=== PATIENT | female | born 1940 | race Caucasian/White ===

== ENCOUNTER 2021-10-29 10:23 | Observation (INO) | payer OTHER ==
[~2021-10-29] VITALS: Ht 162.6 cm; Wt 69.6 kg
[2021-10-29 10:23] VITALS: BP 233/73
--- NOTE | 2021-10-29 10:23 | NUR ---
PT BIBA TO BED 8
--- NOTE | 2021-10-29 10:25 | NUR ---
81 Y/O FEMALE BIBA FROM HOME C/O R HIP PAIN AND LOWER BACK PAIN S/P MECHANICAL FALL XTODAY. PT REPORTS HITTING HER HEAD ON DOOR, DENIES LOC. PT WAS GIVEN 100MCG FENTANYL IN WITH MINOR RELIEF. SPO2 DROPPED TO 85% S/P FENTANYL, PLACED ON 2L N/C BY MEDICS. PT AMBULATES WITH WALKER. DENIES BLOOD THINNERS. PT DENIES CHEST PAIN, SOB. PT DENIES FEVER OR CHILLS. 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
--- NOTE | 2021-10-29 10:34 | NUR ---
AT PT BEDSIDE
[2021-10-29] MEDS ORDERED: LABETALOL 100 MG/20 ML VIAL IVP ONE (10:40)
[2021-10-29] MEDS ORDERED: MORPHINE SULFATE 4 MG/ML SYR IVP ONE ×2 (10:40→13:55)
--- NOTE | 2021-10-29 10:40 | NUR ---
MORPHINE ORDERED FOR PATIENT. PER DR. VACA DO NOT GIVE MORPHINE AT THIS TIME. PT WAS GIVEN FENTAYL EN ROUTE BY EMS.
[2021-10-29] MEDS ORDERED: LIDOCAINE 5% 1 EA PATCH TP SCH (10:50)
[2021-10-29] MEDS ORDERED: hydrALAZINE 20 MG/ML VIAL IVP ONE ×2 (10:50→12:50)
--- NOTE | 2021-10-29 10:52 | NUR ---
LAB AT PT BEDSIDE
--- NOTE | 2021-10-29 11:07 | NUR ---
UNABLE TO PERFORM EKG ON PT. RADIOLOGY AT BEDSIDE GETTING READY TO TAKE PT FOR X RAY.
[2021-10-29 11:08] LABS: BASOPHILS % (AUTO) 0.3 % (0.0-2.0); EOSINOPHILS # (AUTO) 0.1 K/uL (0-0.4); EOSINOPHILS % (AUTO) 0.8 % (0.0-4.0); LYMPHOCYTES # (AUTO) 2.2 K/uL (2.5-16.5); LYMPHOCYTES % (AUTO) 17.9 % (20.5-51.1); MEAN CORPUSCULAR HEMOGLOBIN 27 pg (27-31); MEAN CORPUSCULAR HGB CONC 32 g/dL (33-37); MEAN CORPUSCULAR VOLUME 82.3 fL (80-94); MONOCYTES # (AUTO) 0.7 K/uL (0.8-1.0); MONOCYTES % (AUTO) 5.4 % (1.7-9.3); NEUTROPHILS # (AUTO) 9.3 K/uL (1.8-7.7); NEUTROPHILS % (AUTO) 75.6 % (42.2-75.2); PLATELET COUNT (AUTO) 218 K/uL (140-450); RED BLOOD CELL COUNT(AUTO) 4.85 MIL/uL (4.20-5.40); RED CELL DISTRIBUTION WIDTH 13.8 % (11.6-13.7); WHITE BLOOD COUNT (AUTO) 12.3 K/uL (4.8-10.8)
--- NOTE | 2021-10-29 11:08 | NUR ---
PT TAKEN TO XR VIA TONI
[2021-10-29 11:25] LABS: PROTHROMBIN TIME 10.3 secs (10.8-13.4)
[2021-10-29 11:42] LABS: ALBUMIN 3.6 g/dL (3.4-5.0); CARBON DIOXIDE 31.1 mmol/L (21-32); CREATININE 0.8 mg/dL (0.6-1.3); GLUCOSE 138 mg/dL (74-106); TOTAL BILIRUBIN 0.6 mg/dL (0.0-1.0); UREA NITROGEN, BLOOD 13 mg/dL (7-18)
[2021-10-29 11:44] LABS: CHLORIDE 103 mmol/L (98-107); POTASSIUM 4.1 mmol/L (3.5-5.1); SODIUM SERUM 140 mmol/L (136-145)
--- NOTE | 2021-10-29 11:58 | NUR ---
PT RETURNED FROM RAD AND PLACED BACK ONTO MARKET DEVELOPMENT MANAGER.
[2021-10-29 12:10] LABS: ASPARTATE AMINOTRANSFERASE 24 U/L (15-37)
--- NOTE | 2021-10-29 12:30 | NUR ---
PATIENT APPEARS TO BE RESTING COMFORTABLY IN BED. RESPIRATIONS EVEN AND UNLABORED. BP 200/63 MD NOTIFIED.
--- NOTE | 2021-10-29 12:47 | NUR ---
ATTEMPTED TO CALL PATIENTS LADONNA AND DAUGHTER ALISA REGARDING MEDICATIONS FOR HYPERTENSION PATIENT TAKES. HAVE BEEN UNABLE TO REACH THEM. WILL CONTINUE TO TRY.
--- NOTE | 2021-10-29 12:51 | NUR ---
PT STATES HER PAIN IS CURRENTLY 9/10. PER DR. NOLA FLOWER TO GIVE PATIENT PAIN MEDICATION PRESCRIBED.
[2021-10-29] MEDS ORDERED: MORPHINE SULFATE 4 MG/ML SYR ONE (12:56)
--- NOTE | 2021-10-29 13:05 | NUR ---
PATIENTS BP 188/66. PER MD HOLD HYDRALAZINE AT THIS TIME.
[2021-10-29] MEDS ORDERED: methocarbamoL 500 MG TAB PO ONE (13:55)
[2021-10-29] MEDS ORDERED: hydroCHLOROthiazide 25 MG TAB PO ONE (14:20)
--- NOTE | 2021-10-29 14:26 | NUR ---
PT TAKEN TO CT VIA TONI
--- NOTE | 2021-10-29 14:52 | NUR ---
HUEY SAWANT WALKED TO LAB
[2021-10-29] MEDS: LOSARTAN 50 MG TAB PO SCH ×2 (15:25→15:33)
[2021-10-29] MEDS: METOPROLOL SUCCINATE 50 MG TABER PO SCH ×2 (15:28→15:34)
[2021-10-29] MEDS: hydroCHLOROthiazide 25 MG TAB PO SCH ×2 (15:29→15:31)
[2021-10-29] MEDS ORDERED: ACETAMINOPHEN 325 MG TAB PO PRN (16:35)
[2021-10-29] MEDS ORDERED: HYDROcodone/APAP 5/325 MG 1 TAB TAB PO PRN (16:35)
[2021-10-29] MEDS ORDERED: POTASSIUM CHLORIDE 10 MEQ TABER PO PRN (16:35)
[2021-10-29] MEDS ORDERED: MAGNESIUM OXIDE 400 MG TAB PO PRN (16:35)
[2021-10-29] MEDS ORDERED: KCL 20 MEQ/WATER INJ PREMIX 200 ML IV PRN (16:35)
[2021-10-29] MEDS ORDERED: MAG SULF 2000 MG/WATER PREMIX 50 ML IV PRN (16:35)
--- NOTE | 2021-10-29 17:20 | NUR ---
Note michelle in ED - 10/29/21 at 1723 by ALEXANDER Patient will be admitted to care of . Admited to MED SURG. Will go to room 107A. Belongings list completed. Report to EMANUEL EUCEDA.
--- NOTE | 2021-10-29 17:23 | NUR ---
Patient will be admitted to care of . Admited to MED SURG. Will go to room 107 A. Belongings list completed. Report to EMANUEL EUCEDA.
[2021-10-29] MEDS: MORPHINE SULFATE 4 MG/ML SYR IVP PRN (18:10)
[2021-10-29] MEDS: ONDANSETRON 4 MG/2 ML VIAL IVP PRN (18:11)
[2021-10-29] MEDS ORDERED: LOSA100T51 PO (19:07)
[2021-10-29] MEDS ORDERED: METO50TE2 PO (19:08)
[2021-10-29 19:11] VITALS: BP 189/60
[2021-10-29] MEDS ORDERED: HYDR12.51 PO (19:13)
[2021-10-29] MEDS ORDERED: ALBU-118 INH (19:14)
[2021-10-29] MEDS ORDERED: GABA250S1 PO (19:15)
[2021-10-29] MEDS: hydrALAZINE 20 MG/ML VIAL IVP PRN (19:21)
--- NOTE | 2021-10-29 19:40 | NUR ---
OPENING NOTES; Received report from outgoing nurse. Pt lying in bed resting. No signs of resp. distress, or discomfort. Pt denied any pain at this time. Facial expressions calm and relaxed. 2000; Pt vitals appear stable. BP at this time 143/66, P 65, T 97.8, O2SAT 95%. Will cont to monitor.
[2021-10-30 04:00] VITALS: BP 167/71
[2021-10-30] MEDS: MORPHINE SULFATE 4 MG/ML SYR IVP PRN (06:16)
[2021-10-30] MEDS: ONDANSETRON 4 MG/2 ML VIAL IVP PRN ×3 (06:25→18:17)
[2021-10-30 06:40] LABS: HEMOGLOBIN 12.8 g/dL (12.0-16.0); MEAN CORPUSCULAR HEMOGLOBIN 27 pg (27-31); MEAN CORPUSCULAR HGB CONC 33 g/dL (33-37); MEAN CORPUSCULAR VOLUME 81.6 fL (80-94); PLATELET COUNT (AUTO) 231 K/uL (140-450); RED BLOOD CELL COUNT(AUTO) 4.78 MIL/uL (4.20-5.40); RED CELL DISTRIBUTION WIDTH 14.2 % (11.6-13.7); WHITE BLOOD COUNT (AUTO) 17.9 K/uL (4.8-10.8)
[2021-10-30 07:14] LABS: BASOPHILS % (MANUAL) 0 % (0-2); EOSINOPHILS % (MANUAL) 0 % (0-4); LYMPHOCYTES % (MANUAL) 17 % (20-46); MONOCYTES % (MANUAL) 5 % (5-12)
[2021-10-30 07:18] LABS: ALBUMIN 3.5 g/dL (3.4-5.0); ANION GAP 11.6 (8-16); ASPARTATE AMINOTRANSFERASE 14 U/L (15-37); CARBON DIOXIDE 28.1 mmol/L (21-32); CHLORIDE 100 mmol/L (98-107); CREATININE 0.8 mg/dL (0.6-1.3); GLUCOSE 142 mg/dL (74-106); POTASSIUM 3.7 mmol/L (3.5-5.1); SODIUM SERUM 136 mmol/L (136-145); TOTAL BILIRUBIN 0.8 mg/dL (0.0-1.0); UREA NITROGEN, BLOOD 14 mg/dL (7-18)
--- NOTE | 2021-10-30 07:45 | NUR ---
END OF SHIFT REPORT GIVEN TO INCOMING NURSE. PT C/O PAIN 03/20, NOTED BP @ 0400 167/71. GAVE MORPHINE PER ORDER. ON RECHECKING BP, IT CAME DOWN TO 151/63. PT MADE COMFORTABLE, CHANGED, KEPT CLEAN AND DRY. ALL SAFETY AND COMFORT MEASURES PUT IN PLACE. PT WITH NO S/SX OF DISTRESS, STABLE AT THIS TIME, ENDORSED TO INCOMING NURSE FOR CONTINUITY OF CARE.
[2021-10-30 08:00] VITALS: BP 107/67
--- NOTE | 2021-10-30 08:00 | NUR ---
RECEIVED ENDORSEMENT FROM PM SHIFT NURSE WITH PATIENT REST IN BED, PIV 22G R. HAND SALINE LOCKED
--- NOTE | 2021-10-30 14:29 | NUR ---
DC PLANNING: RECEIVED A CALL FROM DR ALVARENGA STATED DISCUSSED THE DC PLAN TO SNF WITH PT'S AND HE AGREED FOR HIS TO GO TO SNF. FAXED THE ORDER TO [facility] [phone] .AWAITING FOR PT LEONARDOAL FAXED TO [facility], [facility], [facility] AND [facility] [place]. CM TO FOLLOW Addendum: 10/31/21 at 1126 by Danielle Gaxiola CM DC PLANNING: LLUVIA SPOKE WITH THE PATIENT AND HER AT BEDSIDE, SHE STATES SHE IS WILLING TO GO TO [facility]. LLUVIA ALSO SPOKE WITH FATUMA AT [facility], AUTH GIVEN FOR [facility] OF [id number], HE WILL GIVE AUTH NUMBER TO PETRA AT [facility]. CM PENDING ROOM ASSIGNMENT TO SET UP TRANSPORT, AND WILL FOLLOW FOR NEEDS. Addendum: 10/31/21 at 1213 by Danielle Gaxiola CM DC PLANNING: PATIENT ASSIGNED TO ROOM 19, DR ESTRADA TO FOLLOW. ALLAN ([phone]) WILL TRUCKING MANAGER THE PATIENT BETWEEN [phone] NUMBER TO CALL REPORT IS [phone]. ABOVE ENDORSED TO THE PATIENTS NURSE PEPE. CM WILL FOLLOW.
[2021-10-30 16:00] VITALS: BP 194/86
--- NOTE | 2021-10-30 16:00 | NUR ---
PATIENT'S BP 194/86, ONE DOSE HYDRALAZINE GAVE, ONE LATER BP 185/46, B UT PATIENT REPORT NAUSEATED, ZOFRAN AND ICE CHIP GIVEN. WILL CONTINUE TO MONITOR
[2021-10-30] MEDS: hydrALAZINE 20 MG/ML VIAL IVP PRN (17:14)
--- NOTE | 2021-10-30 19:35 | NUR ---
ENDORSE PATIENT TO PM SHIFT NURSE WHILE PATIENT REST IN BED NO VOMITING, NAUSEA MEDICATION GIVEN. BP NEED CLOSE MONITOR. PIV R. HAND SALINE LOCK.
--- NOTE | 2021-10-30 20:23 | NUR ---
BP RE CHECK 176/64 - HYDRALAZINE GIVEN TIV BY AM SHIFT RN . WILL CONT. TO MONITOR . , CALL LIGHT WITHIN REACH .
[2021-10-30] MEDS ORDERED: ACET-9525 PO (21:29)
--- NOTE | 2021-10-30 22:22 | NUR ---
BP RE CHECK 130/76 , MT 72 - NO COMPLAIN MADE , CALL LIGHT WITHIN REACH .
[2021-10-31] VITALS: BP 136/75
--- NOTE | 2021-10-31 01:01 | NUR ---
SLEEPING , CHEST RISE AND FALL EQUALLY - CALL LIGHT WITHIN REACH .
--- NOTE | 2021-10-31 04:00 | NUR ---
ROUNDS , AWAKEABLE , NO COMPLAIN MADE .
--- NOTE | 2021-10-31 06:07 | NUR ---
DIAPER FULLY WET - WILL CLEAN UP - NO COMPLAIN MADE .
[2021-10-31 06:31] LABS: BASOPHILS % (AUTO) 0.3 % (0.0-2.0); EOSINOPHILS # (AUTO) 0.1 K/uL (0-0.4); EOSINOPHILS % (AUTO) 0.4 % (0.0-4.0); HEMATOCRIT 39.3 % (36-48); HEMOGLOBIN 12.8 g/dL (12.0-16.0); LYMPHOCYTES % (AUTO) 14.2 % (20.5-51.1); MEAN CORPUSCULAR HEMOGLOBIN 27 pg (27-31); MEAN CORPUSCULAR HGB CONC 33 g/dL (33-37); MEAN CORPUSCULAR VOLUME 82.6 fL (80-94); MONOCYTES # (AUTO) 0.9 K/uL (0.8-1.0); MONOCYTES % (AUTO) 6.7 % (1.7-9.3); NEUTROPHILS # (AUTO) 11.1 K/uL (1.8-7.7); NEUTROPHILS % (AUTO) 78.4 % (42.2-75.2); PLATELET COUNT (AUTO) 196 K/uL (140-450); RED BLOOD CELL COUNT(AUTO) 4.76 MIL/uL (4.20-5.40); RED CELL DISTRIBUTION WIDTH 14.1 % (11.6-13.7); WHITE BLOOD COUNT (AUTO) 14.1 K/uL (4.8-10.8)
[2021-10-31 06:49] LABS: ALBUMIN 3.3 g/dL (3.4-5.0); ANION GAP 9.5 (8-16); ASPARTATE AMINOTRANSFERASE 13 U/L (15-37); CARBON DIOXIDE 32.3 mmol/L (21-32); CHLORIDE 99 mmol/L (98-107); CREATININE 0.7 mg/dL (0.6-1.3); GLUCOSE 124 mg/dL (74-106); MAGNESIUM 1.9 mg/dL (1.8-2.4); POTASSIUM 3.8 mmol/L (3.5-5.1); SODIUM SERUM 137 mmol/L (136-145); TOTAL BILIRUBIN 0.9 mg/dL (0.0-1.0); UREA NITROGEN, BLOOD 19 mg/dL (7-18)
--- NOTE | 2021-10-31 07:22 | NUR ---
ENDORSED - PT - STABLE . ON O2 AT 2LPM/NC .
[2021-10-31 08:00] VITALS: BP 172/83
--- NOTE | 2021-10-31 08:22 | NUR ---
RECEIVED ENDORSEMENT FROM PM SHIFT NURSE THAT PATIENT IS IN STABLE CONDITION, PIV SALINE LOCK R. HAND 22G PATENT. WILL CONTINUE TO MONITOR
[2021-10-31] MEDS: hydrALAZINE 20 MG/ML VIAL IVP PRN (08:59)
--- NOTE | 2021-10-31 10:09 | NUR ---
PATIENT HAS BEEN SCREENED AND CATEGORIZED LOW NUTRITION RISK. PATIENT WILL BE SEEN WITHIN 7 DAYS OF ADMISSION. 11/05/[address]
--- NOTE | 2021-10-31 10:14 | NUR ---
TOOL DESIGN ENGINEER CALLED AND NEEDS PATIENT'S SSN ([id number]) FOR D/C PLACEMENT. Addendum: 10/31/21 at 1023 by Nany Braswell RN SERGIO AMBROSIO TOOL DESIGN ENGINEER MARVEL CALL FOR PATIENT'S SSN (SEE ABOVE) INFORMED
[2021-10-31] MEDS ORDERED: HYDROcodone/APAP 5/325 MG 1 TAB TAB PO PRN (10:40)
--- NOTE | 2021-10-31 11:15 | NUR ---
SCREEN FOR LOW MOISES SCALE AT RISK, CONTINUE TO FOLLOW PRESSURE ULCER PREVENTION INTERVENTIONS. -TURN AND REPOSITION PATIENT Q 2H, ASSIST IF NEEDED -ASSESS AND MONITOR SKIN CONDITION DURING POSITION CHANGES -OFFLOAD BILATERAL HEELS BY PLACING PILLOWS UNDER CALVES AT ALL TIMES, UNLESS OTHERWISE CONTRAINDICATED -PRESSURE REDISTRIBUTION BY PLACING PILLOWS AND OFFLOADING SACRALCOCCYX -KEEP SKIN CLEAN AND DRY AT ALL TIMES.
[2021-10-31] MEDS: ONDANSETRON 4 MG/2 ML VIAL IVP PRN (11:44)
[2021-10-31] MEDS ORDERED: ALBUTEROL HFA MDI 90 MCG/ACTUATION 8 GM INH SCH (12:00)
[2021-10-31 12:55] VITALS: BP 149/51
[2021-10-31] MEDS ORDERED: ALBUTEROL 0.083% 2.5 MG/3 ML NEBU INH SCH (13:00)
--- NOTE | 2021-10-31 14:31 | NUR ---
[facility] ARRIVE THE FACILITY AT 1405 AND [facility] PATIENT IN STABLE CONDITION. ARM BAND & IV REMOVED.
[2021-11-01] MEDS ORDERED: METOPROLOL SUCCINATE 50 MG TABER PO SCH (09:00)
[2021-11-01] MEDS ORDERED: LOSARTAN 50 MG TAB PO SCH (09:00)
[2021-11-01] MEDS ORDERED: NON-FORMULARY ITEM (Losartan Potassium 1 TAB) PO SCH (09:00)
[2021-11-01] MEDS ORDERED: hydroCHLOROthiazide 25 MG TAB PO SCH (09:00)
== END 2021-10-31 14:30 ==
LOC: MED 10:23 → MTU 16:37
PROVIDERS: ADMIT Hospitalist; ATTEND Hospitalist
DX: M54.9 Dorsalgia, unspecified (principal); Z20.822 Contact with and (suspected) exposure to COVID-19; M85.80 Other specified disorders of bone density and structure, unspecified site; S09.90XA Unspecified injury of head, initial encounter; E11.40 Type 2 diabetes mellitus with diabetic neuropathy, unspecified; I16.0 Hypertensive urgency; I10 Essential (primary) hypertension; R29.6 Repeated falls; Z88.0 Allergy status to penicillin; Z79.899 Other long term (current) drug therapy; W18.30XA Fall on same level, unspecified, initial encounter; Y93.89 Activity, other specified; Y92.89 Other specified places as the place of occurrence of the external cause
CPT/HCPCS: 36415; 70450; 72110; 72131; 72170; 72220; 80053; 82550; 83735; 84484; 85025; 85610; 85730; 87081; 87426; 93005; 96372; 96374; 96375; 96376; 99285; G0378; J0360; J1644; J2270; J2405; J3490